=== PATIENT | male | born 1940 | race Caucasian/White ===

== ENCOUNTER 2018-03-02 15:49 | Emergency (ER) | payer BC, MEDICARE ==
--- OUTSIDE RECORDS SUMMARY | 2018-03-02 16:04 | XMS REPORT | Continuity of Care Document ---
:1940 External Reference #:[id number] Author Name Danielle Mo Care Team Providers Name Role Phone Tha Frias M.D. Care Team Information Tapper Bit Unavailable Tha Frias M.D. Primary Care Physician Unavailable Payers Type Date Identification Numbers Payment Provider Subscriber Effective: 2014 Policy Number: [id number] [facility] Katerina Song PayID: [id number] [address] [address] [place] [address] Effective: 2014 Policy Number: [id number] Medicare Rafael Song PayID: [id number] [address] [place] [address] Advance Directives Description No Information Available Problems Date Description Provider Status Onset: 12/11/2017 Raised prostate specific antigen Mack Moyer MD Active Onset: 02/08/2017 Malignant tumor of prostate Mack Moyer MD Active Family History Date Family Member(s) Problem(s) Comments Father due to Brain Mass () - age 74 Mother due to Alzheimer's Disease () Mother due to Thyroid Disease () - age 86 First Sister Osteoporosis Social History Type Date Description Comments Sex Unknown Marital Status Patient is Occupation Patient is retired Tobacco Use Start: Unknown End: Former Cigarette Smoker started at ago 20 times Unknown 50 years prior 1 pack per day Smoking Status Reviewed: 02/06/18 Former Cigarette Smoker started at ago 20 times 50 years prior 1 pack per day ETOH Use Consumes 3 beers per day Allergies, Adverse Reactions, Alerts Date Description Reaction Status Severity Comments 04/20/2015 Codeine constipation Active 04/20/2015 Statins muscle weakness Active 04/20/2015 Flu Shot hives Active Medications Medication Date Status Form Strength Qnty SIG Indications Ordering Provider Fenofibrate / Active Tablets 145mg Unknown 0000 Combivent / Active Aerosol 20-100mcg/ Unknown Respimat 0000 Act Ipratropium / Active Solution 0.5-2.5(3) Unknown [place]/Albuter 0000 mg/3ML ol Sulfate Symbicort / Active Aerosol 160-4.5mcg Unknown 0000 /Act Alphagan P / Active Solution 0.1% Unknown 0000 Travatan Z / Active Solution 0.004% Unknown 0000 Ciprofloxacin 11/30/ Hx Tablets 500mg 8tabs 1 by mouth Mack Garcia HCL 2017 - twice a MD João , start 2017 taking one day before procedure Fleet Enema 11/30/ Hx Enema 7-19GM/118 133ml squeeze to Mack Garcia 2017 - ML rectal area MD João 02/05/ after 2017 dinner -night before the procedure Cipro 03/29/ Hx Tablets 500mg 30tabs twice a day Adair 2015 - Watson M, 04/13/ M.D. 2015 Flomax 03/29/ Hx Capsules 0.4mg 90caps 1 by mouth Mack Garcia 2015 - every day MD João 2017 Cipro 03/09/ Hx Tablets 500mg 14tabs twice a day R35.0 Adair 2016 - Watson M, 03/16/ M.D. 2015 Keflex 02/16/ Hx Capsules 500mg 6caps 1 by mouth Adair 2015 - twice a day [facility], 02/19/ M.D. 2016 Cialis 02/16/ Hx Tablets 20mg 6tabs 1 as needed N52.01 Adair 2015 - Watson , 08/08/ M.D. 2017 Medications Administered in Office Medication Date Status Form Strength Qnty SIG Indications Ordering Provider Gentamicin Up Administered Injection Mack Garcia To 80MG Dose, 018 MD João 80MG/2ML Single-Use Vial Immunizations Description No Information Available Vital Signs Date Vital Result Comment 02/06/2018 9:41am Height 70 inches 5'10" Weight 195.00 lb Weight 88.452 kg BMI (Body Mass Index) 28.0 kg/m2 08/08/2017 9:25am Height 70 inches 5'10" Weight 195.00 lb Weight 88.452 kg BMI (Body Mass Index) 28.0 kg/m2 BP Systolic 165 mmHg BP Diastolic 88 mmHg Heart Rate 103 /min 04/13/2016 4:05pm Post Void Residual ml 110 Indication:, U/S rama but had bottle of soda enrou 02/17/2016 8:49am Height 70 inches 5'10" Weight 195.00 lb Weight 88.452 kg BMI (Body Mass Index) 28.0 kg/m2 BP Systolic 120 mmHg left wrist audio BP Diastolic 74 mmHg left wrist audio Heart Rate 90 /min Body Temperature 97.6 F 03/24/2015 11:04am Body Temperature 97.6 F 03/24/2015 1:37pm Height 69.5 inches 5'9.50" Weight 191.00 lb Weight 86.638 kg BMI (Body Mass Index) 27.8 kg/m2 BP Systolic 130 mmHg BP Diastolic 68 mmHg Results Test Date Facility Test Result H/L Range Note Laboratory test 12/27/2017 [facility]irm[facility] < pending> finding [address] [place] [address] [phone] Prostate Biopsy 12/11/2017 [facility] R97.[address] [place] [address] [phone] Left Base Benign prostatic <SEE NOTE> 2 Left Lateral Base Benign prostatic <SEE NOTE> 3 Left Mid Benign prostatic <SEE NOTE> 4 Left Lateral Mid Benign prostatic <SEE NOTE> 5 Left [place] Benign prostatic <SEE NOTE> 6 Left Lateral [place] Benign prostatic <SEE NOTE> 7 Right Base Benign prostatic <SEE NOTE> 8 Right Lateral Base Benign prostatic <SEE NOTE> 9 Right Mid Benign prostatic <SEE NOTE> 10 Right Lateral Mid Benign prostatic <SEE NOTE> 11 Right [place] Benign prostatic <SEE NOTE> 12 Right Lateral [place] Benign prostatic <SEE NOTE> 13 Left Mid #13 Benign prostatic <SEE NOTE> 14 Left [place] #14 PROSTATIC TISSUE <SEE NOTE> 15 PDF Report SEE IMAGE Laboratory test 11/27/2017 [facility] Rectal Swab NEGATIVE - No [address] [place] [address] Fl <SEE NOTE> [place] [address] [phone] 230 Ua Routine 10/01/2017 [facility] Ua Glucose Negative REF TO DR ADDRESS ON ORDER FOR (416)- - Ua Protein Negative Ua Nitrite Negative Ua Leuko Negative Ua Blood Trace-intact Ua Color Yellow Ua Ketones Negative Ua Clarity Clear Ua Specific [place] 1.010 1.003-1.030 Ua PH 5.5 5.0-7.5 Ua Bilirubin Negative Ua Urobilinogen 0.2 E.U./dL 0.0-1.0 Basic Metabolic 09/10/2017 [facility] Creatinine 1.16 mg/dL 0.72-1.25 Panel [address] [place] [address] [phone] Glucose 122.0 mg/dL 70.0-99.0 Co2 21.0 mmol/L Low 22.0-31.0 Calcium 9.7 mg/dL 8.4-10.2 BUN 20.0 mg/dL 7.0-24.0 BUN/Creat Ratio 17.2 Na 135.0 mmol/L Low 136.0-145.0 K 4.5 mmol/L 3.6-5.2 Cl 100.0 mmol/L 98.0-108.0 Anion Gap 18.5 eGFR - Descent 71.5 >60.0 eGFR -- Non- Descent 59.0 Low >60.0 Urine Microscopy 08/08/2017 [facility] Urine WBC 0-2 /HPF 0 - 5 [address] [place] [address] [phone] Urine RBC 0-2 /HPF 0-2 Bacteria NEG /HPF Neg Crystals Neg /HPF Neg Epithelial Cells 1+ /HPF Neg Sperm NEG /HPF Neg Yeast NEG /HPF Neg UACast Neg /LPF Neg Urine Culture 08/08/2017 [facility] Urine Culture NO GROWTH: 17, [address] <[place] [address] NOTE> [phone] Urine Cytology 08/08/2017 [facility] Hematuria 19 [address] [place] [address] [phone] Specimen Adequacy Satisfactory for <SEE NOTE> 20 BodySite Voided - Clean C <SEE NOTE> 21 Gross Description Received in a sp <SEE NOTE> 22 Microscopic Description Mild numbers of <SEE NOTE> 23 Final Diagnosis NEGATIVE FOR HIG <SEE NOTE> 24 CPTCode 13025 PDF Report SEE IMAGE 230 Ua Routine 08/08/2017 [facility] Ua Glucose Negative REF TO DR ADDRESS ON ORDER FOR (425)- - Ua Protein Negative Ua Nitrite Negative Ua Leuko Negative Ua Blood Trace-intact Ua Color Yellow Ua Ketones Negative Ua Clarity Clear Ua Specific [place] 1.010 1.003-1.030 Ua PH 6.0 5.0-7.5 Ua Bilirubin Negative Ua Urobilinogen 0.2 E.U./dL 0.0-1.0 Laboratory test 07/30/2017 [facility] Total Psa 12.32 ng/mL High 0.00-4.[address] [place] [address] [phone] 230 Ua Routine 02/08/2017 [facility] Ua Glucose Negative REF TO DR ADDRESS ON ORDER FOR (315)- - Ua Protein Negative Ua Nitrite Negative Ua Leuko Negative Ua Blood Trace-lysed Ua Color yellow Ua Ketones Negative Ua Clarity clear Ua Specific [place] <=1.005 1.003-1.030 Ua PH 5.5 5.0-7.5 Ua Bilirubin Negative Ua Urobilinogen 0.2 E.U./dL 0.0-1.0 230 Ua Routine 09/21/2016 [facility] Ua Glucose Negative REF TO DR ADDRESS ON ORDER FOR (315)- - Ua Protein Negative Ua Nitrite Negative Ua Leuko Negative Ua Blood Negative Ua Color yellow Ua Ketones Negative Ua Clarity clear Ua Specifici [place] 1.010 1.003-1.030 Ua PH 6.0 5.0-7.5 Ua Bilirubin Negative Ua Urobilinogen 0.2 E.U./dL 0.0-1.0 Laboratory test 09/13/2016 [facility] Total Psa 8.45 ng/mL High 0.00-4.[address] [place] [address] [phone] 230 Ua Routine 04/13/2016 [facility] Ua Glucose Negative REF TO DR ADDRESS ON ORDER FOR (315)- - Ua Protein Negative Ua Nitrite Negative Ua Leuko Negative Ua Blood Negative Ua Color yellow Ua Ketones Negative Ua Clarity clear Ua Specifici [place] 1.015 1.003-1.030 Ua PH 6.0 5.0-7.5 Ua Bilirubin Negative Ua Urobilinogen 0.2 E.U./dL 0.0-1.0 230 Ua Routine 03/09/2016 [facility] Ua Glucose Negative REF TO DR ADDRESS ON ORDER FOR (315)- - Ua Protein 2+ Ua Nitrite Negative Ua Leuko 2+ Ua Blood 3+ Ua Color dark yellow Ua Ketones Negative Ua Clarity cloudy Ua Specifici [place] 1.020 1.003-1.030 Ua PH 5.5 5.0-7.5 Ua Bilirubin Negative Ua Urobilinogen 0.2 E.U./dL 0.0-1.0 Prostate Biopsy 03/02/2016 [facility] History PSA: 8.71 ng/ml [address] [place] [address] [phone] Left Base Benign prostatic <SEE NOTE> 27 Left Lateral Base Benign prostatic <SEE NOTE> 28 Left Mid Benign prostatic <SEE NOTE> 29 Left Lateral Mid Benign prostatic <SEE NOTE> 30 Left [place] ADENOCARCINOMA, <SEE NOTE> 31 Left Lateral [place] Benign prostatic <SEE NOTE> 32 Right Base HIGH -GRADE PROS <SEE NOTE> 33 Right Lateral Base Benign prostatic <SEE NOTE> 34 Right Mid Benign prostatic <SEE NOTE> 35 Right Lateral Mid Benign prostatic <SEE NOTE> 36 Right [place] Benign prostatic <SEE NOTE> 37 Right Lateral [place] HIGH -GRADE PROS <SEE NOTE> 38 PDF Report SEE IMAGE Laboratory test 02/17/2016 [facility] Rectal Swab NEGATIVE - No [address] [place] [address] Screen Fl <SEE NOTE> [place] [address] [phone] 230 Ua Routine 02/17/2016 [facility] Ua Glucose Negative REF TO DR ADDRESS ON ORDER FOR (254)- - Ua Protein Negative Ua Nitrite Negative Ua Leuko Negative Ua Blood Negative Ua Color yellow Ua Ketones Negative Ua Clarity clear Ua Specifici [place] 1.015 1.003-1.030 Ua PH 5.0 5.0-7.5 Ua Bilirubin Negative Ua Urobilinogen 0.2 E.U./dL 0.0-1.0 Laboratory test 02/14/2016 [facility] Total Psa 8.71 ng/mL High 0.00-4.[address] [place] [address] [phone] Testosterone 612.27 ng/dL 300.00-1000.00 Prostate Biopsy 05/20/2015 [facility] History PSA: 7.6 ng/ml [address] [place] [address] [phone] BodySite PROSTATE SubSite RIGHT LATERAL AP <SEE NOTE> 41 SpecialProcedure BIOPSY Final Diagnosis ADENOCARCINOMA, <SEE NOTE> 42 Stain 1-3 CPTCode 50082s40;37284 MAM0Moag C61 Left Base Benign prostatic <SEE NOTE> 43 Left Lateral Base Benign prostatic <SEE NOTE> 44 Left Mid Benign prostatic <SEE NOTE> 45 Left Lateral Mid Benign prostatic <SEE NOTE> 46 Left [place] Benign prostatic <SEE NOTE> 47 Left Lateral [place] Benign prostatic <SEE NOTE> 48 Right Base HIGH -GRADE PROS <SEE NOTE> 49 Right Lateral Base Benign prostatic <SEE NOTE> 50 Right Mid HIGH -GRADE PROS <SEE NOTE> 51 Right Lateral Mid Benign prostatic <SEE NOTE> 52 Right [place] Benign prostatic <SEE NOTE> 53 Right Lateral [place] ADENOCARCINOMA, <SEE NOTE> 54 PDF Report SEE IMAGE Laboratory test 05/20/2015 Outside Facility PSA Total POS BX finding (315)- - Laboratory test 05/07/2015 [facility] Rectal Swab NEGATIVE - No 55 finding [address] [facility] <SEE NOTE> [place] [address] [phone] 230 Ua Routine 04/29/2015 [facility] Ua Glucose Negative REF TO DR ADDRESS ON ORDER FOR (315)- - Ua Protein Negative Ua Nitrite Negative Ua Leuko Trace Ua Blood Negative Ua Color yellow Ua Ketones Negative Ua Clarity clear Ua Specific [place] 1.010 1.003-1.030 Ua PH 5.5 5.0-7.5 Ua Bilirubin Negative Ua Urobilinogen 0.2 E.U./dL 0.0-1.0 Laboratory test finding 03/19/2015 Outside Facility PSA Total 7.6 High (315)- - CMP 02/25/2015 Outside Facility BUN - Urea Nitrogen 8 (315)- - Creatinine 1.2 Calcium 9.3 Alkaline Phosphatase 73 Ast (Sgot) 17 Potassium 5.3 High Alt (SGPT) 13 CBC W/Diff 02/25/2015 Outside Facility Hemoglobin 16.7 (315)- - Hematocrit 50.4 Laboratory test 02/25/2015 Outside Facility PSA Total 8.630 High finding (315)- - CMP 10/22/2013 Outside Facility BUN - Urea Nitrogen 12 (315)- - Creatinine 1.3 Calcium 9.4 Alkaline Phosphatase 71 Ast (Sgot) 15 Potassium 4.3 Alt (SGPT) 13 CBC W/Diff 10/22/2013 Outside Facility Hemoglobin 17.0 (315)- - Hematocrit 50.8 Laboratory test finding 10/04/2010 Outside Facility PSA Total 3.46 (315)- - CMP 10/04/2010 Outside Facility BUN - Urea Nitrogen 21 (315)- - Creatinine 1.2 Calcium 10.0 Alkaline Phosphatase 99 Ast (Sgot) 24 Potassium 4.4 Alt (SGPT) 26 CBC W/Diff 10/04/2010 Outside Facility Hemoglobin 18.2 High (315)- - Hematocrit 54.2 High Laboratory test finding 06/20/2010 Outside Facility PSA Total 4.18 High (315)- - 1 C61 2 Benign prostatic tissue. 3 Benign prostatic tissue. 4 Benign prostatic tissue. 5 Benign prostatic tissue. 6 Benign prostatic tissue. Mild acute inflammation present. 7 Benign prostatic tissue. Mild acute inflammation present. 8 Benign prostatic tissue. 9 Benign prostatic tissue. 10 Benign prostatic tissue. 11 Benign prostatic tissue. 12 Benign prostatic tissue. 13 Benign prostatic tissue. 14 Benign prostatic tissue. 15 PROSTATIC TISSUE WITH FOCUS OF SMALL ATYPICAL GLANDS, SUSPICIOUS FOR ADENOCARCINOMA. NOTE: The diagnosis is supported by results of immunohistochemical multiplex stains for racemase, high molecular weight cytokeratin, and p63. (Technical component of immunostains performed by ISAIAH ESCAMILLA) 16 NEGATIVE - No Fluoroquinolone Resistant Organisms Isolated NOTE: The culture procedure is also validated by concurrent blood agar control. 17 R31.9 18 NO GROWTH: FINAL REPORT 19 R31.9 20 Satisfactory for evaluation. 21 Voided - Clean Catch 22 Received in a specimen container, labeled with the patients name and , is Clear Yellow fluid consistent with urine, measuring approximately 70 ml. 23 Mild numbers of neutrophils present. Rare red cells present. 24 NEGATIVE FOR HIGH-GRADE UROTHELIAL CARCINOMA. 25 To be done in 6 months from now 26 Clinical stage: T1c prostate cancer C61 27 Benign prostatic tissue. Mild acute inflammation present. 28 Benign prostatic tissue. 29 Benign prostatic tissue. Mild acute inflammation present. 30 Benign prostatic tissue. 31 ADENOCARCINOMA, ASHA SCORE 3+3=6 (GRADE GROUP 1), involving 1 of 3 cores and <5% (<0.5 mm in aggregated length) of the involved core. NOTE: The diagnosis is supported by results of immunohistochemical multiplex stains for racemase, high molecular weight cytokeratin, and p63. (Technical component of immunostains performed by ISAIAH ESCAMILLA) 32 Benign prostatic tissue. 33 HIGH -GRADE PROSTATIC INTRAEPITHELIAL NEOPLASIA (PIN). 34 Benign prostatic tissue. 35 Benign prostatic tissue. 36 Benign prostatic tissue. 37 Benign prostatic tissue. 38 HIGH -GRADE PROSTATIC INTRAEPITHELIAL NEOPLASIA (PIN) WITH ADJACENT FOCUS OF SMALL ATYPICAL GLANDS. NOTE: The diagnosis is supported by results of immunohistochemical multiplex stains for racemase, high molecular weight cytokeratin, and p63. (Technical component of immunostains performed by ISAIAH ESCAMILLA) NOTE: Grade Groups range from 1 (most favorable) to 5 (least favorable). Khloe PM, Sonja PC, Gely AW, Vane LANTIGUA. Prognostic Asha Grade Grouping: Data based on the modified Asha Scoring system. BJU Int 111:753-60, 2013. Vane LANTIGUA, Viviana WHITE, Soila GILLIS, et al. A contemporary prostate cancer grading system: A validated alternative to Asha Score. Eur Urol 69:428-35, 2016. 39 NEGATIVE - No Fluoroquinolone Resistant Organisms Isolated 40 Clinical stage: T1c hx of elevated PSA R97.2 41 RIGHT LATERAL APEX 42 ADENOCARCINOMA, ASHA SCORE 3+3=6, Involving 10% (1 mm in length) of one core. Perineural invasion identified. NOTE: The diagnosis is supported by results of immunohistochemical multiplex stains for racemase, high molecular weight cytokeratin, and p63. (Technical component of immunostains performed by ISAIAH ESCAMILLA) 43 Benign prostatic tissue. 44 Benign prostatic tissue. 45 Benign prostatic tissue. 46 Benign prostatic tissue. 47 Benign prostatic tissue. 48 Benign prostatic tissue. 49 HIGH -GRADE PROSTATIC INTRAEPITHELIAL NEOPLASIA (PIN). 50 Benign prostatic tissue. 51 HIGH -GRADE PROSTATIC INTRAEPITHELIAL NEOPLASIA (PIN). 52 Benign prostatic tissue. 53 Benign prostatic tissue. 54 ADENOCARCINOMA, ASHA SCORE 3+3=6, Involving 10% (1 mm in length) of one core. Perineural invasion identified. NOTE: The diagnosis is supported by results of immunohistochemical multiplex stains for racemase, high molecular weight cytokeratin, and p63. (Technical component of immunostains performed by ISAIAH ESCAMILLA) 55 NEGATIVE - No Fluoroquinolone Resistant Organisms Isolated Procedures Date Code Description Status 12/11/2017 10436 Injection, Therapeutic, Prophylactic, Or Diagnostic Completed Injection 12/11/2017 67390 Ultrasound,Prostate-Ultrasound Completed 12/11/2017 96269 Biopsy, Prostate, Needle Or Punch, Single Or Multiple, Any Completed Approa 04/13/2016 17659 Bladder Scan, Post Voiding Residual Urine Completed 04/06/2016 39562 Bladder Scan, Post Voiding Residual Urine Completed 03/29/2016 71067 Bladder Scan, Post Voiding Residual Urine Completed 03/09/2016 97612 Bladder Scan, Post Voiding Residual Urine Completed 03/02/2016 22956 Ultrasonic Guidance For Needle Placement(Biopsy);Supervis Completed & Inter 03/02/2016 43681 Ultrasound,Prostate-Ultrasound Completed 03/02/2016 61424 Biopsy, Prostate, Needle Or Punch, Single Or Multiple, Any Completed Approa 05/20/2015 60517 Ultrasonic Guidance For Needle Placement(Biopsy);Supervis Completed & Inter 05/20/2015 49771 Ultrasound,Prostate-Ultrasound Completed 05/20/2015 63510 Biopsy, Prostate, Needle Or Punch, Single Or Multiple, Any Completed Approa Encounters Type Date Location Provider Dx Diagnosis Office Visit 02/06/2018 Cesar/Patti Robledo Z85.46 Personal history 9:00a Urology Carline Scott of malignant neoplasm of prostate R39.12 Poor urinary stream Office Visit 10/01/2017 9:50a Afia Reece Malignant Urology MD João neoplasm of prostate Office Visit 08/08/2017 9:20a Cesar/Patti Reece Malignant Urology MD João neoplasm of prostate R31.9 Hematuria, unspecified Office Visit 02/08/2017 9:45a Afia Reece Malignant Urology MD João neoplasm of prostate Office Visit 09/21/2016 8:40a Cesar/Shanell Nice Malignant Urology Shirley Pradhan M.D. neoplasm of prostate N40.1 Benign prostatic hyperplasia with lower urinary tract symp R35.1 Nocturia Office Visit 04/13/2016 11:30a Urmila Wade, R33.9 Retention of Urology [employer]/PA urine, unspecified C61 Malignant neoplasm of prostate N41.0 Acute prostatitis Office Visit 04/06/2016 9:30a Cesar/Urmila Tapia, R33.9 Retention of Urology [employer]PER[employer]OR/PA urine, unspecified C61 Malignant neoplasm of prostate Office Visit 03/29/2016 9:40a Shirley Quevedo Malignant Urology Charlene Pradhan neoplasm of prostate N41.0 Acute prostatitis R33.9 Retention of urine, unspecified Office Visit 03/23/2016 Shirley Quevedo C61 Malignant 11:20a Urology Charlene Pradhan neoplasm of prostate Office Visit 03/09/2016 Shirley Quevedo R31.0 Gross hematuria 8:30a Urology Charlene Pradhan R35.0 Frequency of micturition N41.0 Acute prostatitis Office Visit 02/17/2016 8:40a Shirley Quevedo C61 Malignant Urology Charlene Pradhan neoplasm of prostate R97.20 Elevated prostate specific antigen [PSA] N52.01 Erectile dysfunction due to arterial insufficiency Office Visit 08/12/2015 9:30a Shirley Quevedo C61 Malignant Urology Charlene Pradhan neoplasm of prostate R97.2 Elevated prostate specific antigen [PSA] Office Visit 06/01/2015 Shirley Quevedo C61 Malignant 10:10a Urology Charlene Pradhan neoplasm of prostate Office Visit 04/29/2015 Shirley Quevedo R97.2 Elevated 10:10a Urology Charlene Pradhan prostate specific antigen [PSA] N40.0 Enlarged prostate without lower urinary tract symptoms Plan of Treatment 02/06/2018 - Stanford ScottP.A.Z85.46 Personal history of malignant neoplasm of prostateComments:Was 12.32. Negative biopsy. Patient is reassured. With his age we'll continue to monitor him and consider conservative therapy as we move along.R39.12 Poor urinary streamComments:Continues on tamsulosin which he tolerates well. Prescription refill fax to pharmacy.Patient was advised that our local office will be closing the end of February. He was given the opportunity scheduled appointment with Dr. taylor in 6 months in [place] for transfer his care and local urologist
[2018-03-02 16:12] VITALS: BP 152/67
--- NOTE | 2018-03-02 16:28 | UC ---
Skin Complaint HPI - HPI Summary HPI Summary: 77 yo pt with PMH of BPHk, COPD and anxiety c/o swelling and redness to right shoulder x 4 days. Has drained "green puss" states area is "burning" and concerned it is a spider bite. Has been applying a natural balm with arnica and other components which have dried up the wound. Denies chills or fever, only burning upon touch. States he has a follow up visit with cardiology s/p carotid endarterectomy recently. - History of Current Complaint Chief Complaint: UCSkin Time Seen by Provider: 03/02/18 16:11 Stated Complaint: POSSIBLE SPIDER BITE SHOULDER Hx Obtained From: Patient Onset/Duration: Sudden Onset, Lasting Days Skin Exposure Onset/Duration: Days Ago Onset Severity: Mild Current Severity: Severe Pain Intensity: 10 Location: Discrete Aggravating Factor(s): Nothing Related History: Insect Bite/Sting - Allergy/Home Medications Allergies/Adverse Reactions: Allergies Allergy/AdvReac Type Severity Reaction Status Date / Time No Known Allergies Allergy Verified 03/02/18 16:05 Home Medications: Home Medications Albuterol/Ipratropium RESP(NF) [Combivent Respimat(NF)] 1 aer IN Q6H PRN [History Confirmed 03/02/18] Brimonidine P 0.15%(NF) [Alphagan P 0.15%(NF)] 1 drop RIGHT EYE BID 03/02/18 [ History Confirmed 03/02/18] Ipratropium HFA INHALER(NF) [Atrovent Hfa Inhaler(NF)] 1 puff INH Q6H 03/02/18 [ History Confirmed 03/02/18] LORazepam TAB(*) [Ativan 0.5 MG TAB (*)] 0.5 mg PO DAILY 03/02/18 [History Confirmed 03/02/18] Tamsulosin CAP* [Flomax CAP*] 0.4 mg PO DAILY 03/02/18 [History Confirmed ] Review of Systems All Other Systems Reviewed And Are Negative: Yes Skin: Positive: Rash PMH/Surg Hx/FS Hx/Imm Hx - Additional Past Medical History Additional PMH: BPH, 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 neck surgery carotid endarterectomy. left rotator cuff - Social History Alcohol Use: None Substance Use Type: None Smoking Status (MU): Heavy Every Day Tobacco Smoker Amount Used/How Often: 1ppd Physical Exam Triage Information Reviewed: Yes Appearance: Well-Appearing, No Pain Distress, Well-Nourished Vital Signs: Initial Vital Signs Temp 97.5 F 03/02/18 16:03 Pulse 111 03/02/18 16:03 Resp 26 03/02/18 16:03 BP 152/67 03/02/18 16:03 Pulse Ox 96 03/02/18 16:03 Vital Signs Reviewed: Yes Eyes: Positive: Conjunctiva Clear ENT: Positive: Normal ENT inspection, Hearing grossly normal, Pharynx normal Neck: Positive: Supple, Nontender, No Lymphadenopathy Respiratory: Positive: Chest non-tender, Lungs clear, Normal breath sounds, No accessory muscle use Cardiovascular: Positive: RRR, No Murmur, Pulses Normal, Brisk Capillary Refill , Tachycardia Abdomen Description: Positive: Nontender Bowel Sounds: Positive: Present Musculoskeletal: Positive: Strength Intact, ROM Intact, No Edema Neurological: Positive: Alert, Muscle Tone Normal Skin Exam: Other - right shoulder soft tissue swelling 4x4cm in dimension with central ulceration . minimal fluctuation under ulceer, tender to touch Course/Dx - Course Course Of Treatment: patient with right shoulder cellulitis will start clinda as prescribed, follow up with PCP. Elevated BP, denies history of HTN and mild tachycardia f/u with cardiology - Diagnoses Provider Diagnoses: cellulitis. Elevated BP without diagnosis HTN. tachycardia Discharge - Sign-Out/Discharge Documenting (check all that apply): Patient Departure All imaging exams completed and their final reports reviewed: No Studies - Discharge Plan Condition: Stable Disposition: HOME Prescriptions: Clindamycin HCl 300 mg PO TID 5 Days #15 capsule Patient Education Materials: Cellulitis (DC), Clindamycin (By mouth) Referrals: Tha Frias MD [Primary Care Provider] - Additional Instructions: please take probiotics or yogurt as you are to start an antibiotic Please follow up with your primary doctor in a week. The results of the culture will return in 2-3 days - Billing Disposition and Condition Condition: STABLE Disposition: Home
--- NOTE | 2018-03-05 07:33 | UC ---
- Progress Note Progress Note: wound culture + MRSA please call the pt. with the culture results may cont. with Clinda please have the pt. follow up with his pcp today or tomorrow may return back to the Urgent care if cannot make an appointment with his pcp Discharge - Sign-Out/Discharge Documenting (check all that apply): Patient Departure All imaging exams completed and their final reports reviewed: No Studies - Discharge Plan Condition: Stable Disposition: HOME Prescriptions: Clindamycin HCl 300 mg PO TID 5 Days #15 capsule Patient Education Materials: Clindamycin (By mouth), Cellulitis (DC) Referrals: Tha Frias MD [Primary Care Provider] - Additional Instructions: please take probiotics or yogurt as you are to start an antibiotic Please follow up with your primary doctor in a week. The results of the culture will return in 2-3 days - Billing Disposition and Condition Condition: STABLE Disposition: Home
--- NOTE | 2018-03-05 21:37 | UC ---
- Progress Note Progress Note: + MRSA Sensitive to Bactrim Ljj 03/05/2018 Discharge - Sign-Out/Discharge Documenting (check all that apply): Post-Discharge Follow Up All imaging exams completed and their final reports reviewed: No Studies - Discharge Plan Condition: Stable Disposition: HOME Prescriptions: Clindamycin HCl 300 mg PO TID 5 Days #15 capsule Patient Education Materials: Clindamycin (By mouth), Cellulitis (DC) Referrals: Tha Frias MD [Primary Care Provider] - Additional Instructions: please take probiotics or yogurt as you are to start an antibiotic Please follow up with your primary doctor in a week. The results of the culture will return in 2-3 days - Billing Disposition and Condition Condition: STABLE Disposition: Home
== END 2018-03-02 16:43 | disposition home or self-care (01) ==
LOC: UCCORT 15:49
DX: L03.113 Cellulitis of right upper limb (principal); B95.62 Methicillin resistant Staphylococcus aureus infection as the cause of diseases classified elsewhere; Z16.11 Resistance to penicillins; Z16.29 Resistance to other single specified antibiotic; R00.0 Tachycardia, unspecified; R03.0 Elevated blood-pressure reading, without diagnosis of hypertension; J44.9 Chronic obstructive pulmonary disease, unspecified; F41.9 Anxiety disorder, unspecified; N40.0 Benign prostatic hyperplasia without lower urinary tract symptoms; F17.210 Nicotine dependence, cigarettes, uncomplicated
CPT/HCPCS: 87070; 87077; 87186; 87205; 87640; 87641; 99202; G0463